=== PATIENT | male | born 1995 | race Hispanic/Latino ===

== ENCOUNTER 2017-10-28 18:26 | Emergency (ER) | payer SELFPAY ==
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
--- NOTE | 2017-10-29 09:26 | RAD REPORT ---
EXAM DESCRIPTION: RAD - Spine Thoracic W/Swimmers - 10/28/2017 8:13 pm COMPARISON: None. FINDINGS: AP & lateral views of the thoracic spine were obtained. Thoracic bodies are normal in height and alig nment. There are no acute or destructive bony processes see. No paraspinal masses are identified. No disc space narrowing. IMPRESSION: Negative thoracic spine examination.
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
== END 2017-10-28 21:32 | disposition home or self-care (01) ==
LOC: ER 18:26
DX: M25.562 Pain in left knee (principal); M54.2 Cervicalgia; M54.5 Low back pain; V49.49XA Driver injured in collision with other motor vehicles in traffic accident, initial encounter; F17.210 Nicotine dependence, cigarettes, uncomplicated
CPT/HCPCS: 70450; 72072; 72100; 72125; 99284